=== PATIENT | male | born 2000 | race Two or more races ===

== ENCOUNTER 2022-04-24 15:19 | Emergency (ER) | payer MEDICAID ==
[~2022-04-24] VITALS: Ht 180.3 cm; Wt 78.0 kg
[2022-04-24 15:41] VITALS: BP 141/78
[2022-04-24] MEDS ORDERED: AZIT250T9 PO (19:42)
[2022-04-24] MEDS ORDERED: AZITHROMYCIN 250 MG TAB PO ONE (19:45)
[2022-04-24] MEDS ORDERED: ACETAMINOPHEN 325 MG TAB PO ONE (19:45)
== END 2022-04-25 00:20 | disposition home or self-care (01) ==
LOC: ER 15:19
DX: B34.9 Viral infection, unspecified (principal); Z20.822 Contact with and (suspected) exposure to COVID-19
CPT/HCPCS: 36415; 87426; 87804; 87807